=== PATIENT | male | born 1990 | race Caucasian/White ===

== ENCOUNTER 2017-03-14 14:43 | Emergency (ER) | payer OTHER ==
[~2017-03-14] VITALS: Ht 182.9 cm; Wt 84.0 kg
[~2017-03-14 14:43] MED LIST: SLEEPING MED
[2017-03-14 15:51] LABS: DAU SCREEN DISCLAIMER
[2017-03-14 16:11] LABS: HEMATOCRIT 48.7 % (39.2-51.8); HEMOGLOBIN 16.7 g/dL (13.7-18.0); WHITE BLOOD COUNT 2.8 x10^3/uL (3.4-10)
[2017-03-14 16:23] LABS: BLOOD UREA NITROGEN 5 mg/dL (7-18)
[2017-03-14 16:25] LABS: ACETAMINOPHEN < 2 mcg/mL (10-30)
[2017-03-14 16:31] LABS: LARGE PLATELETS 1+
[2017-03-14] MEDS ORDERED: NICOTINE 14MG/24 HR PATCH.TD24 ONE (19:59)
[2017-03-14] MEDS ORDERED: LORazepam 1MG TABLET ONE ×2 (19:59→23:12)
[2017-03-14] MEDS ORDERED: NICOTINE 14MG/24 HR PATCH.TD24 TD ONE (20:00)
[2017-03-14] MEDS ORDERED: LORazepam 1MG TABLET PO ONE (20:00)
[2017-03-15] MEDS ORDERED: LORazepam 1MG TABLET ONE (01:38)
[2017-03-15] MEDS ORDERED: ONDANSETRON ODT 4 MG ONE (01:38)
[2017-03-15] MEDS ORDERED: LORazepam 1MG TABLET PO ONE ×3 (02:00→07:00)
[2017-03-15] MEDS ORDERED: ONDANSETRON 4 MG TABLET PO ONE (02:00)
[2017-03-15 08:31] VITALS: BP 128/54
== END 2017-03-15 08:38 | disposition home or self-care (01) ==
LOC: ED 23:59
DX: F33.9 Major depressive disorder, recurrent, unspecified (principal); F10.120 Alcohol abuse with intoxication, uncomplicated; F19.10 Other psychoactive substance abuse, uncomplicated; F17.200 Nicotine dependence, unspecified, uncomplicated; F20.9 Schizophrenia, unspecified
CPT/HCPCS: 36415; 80048; 80307; 80329; 82040; 85025; 99284; Q0162; G0480